=== PATIENT | female | born 1955 | race African-American/Black ===

== ENCOUNTER 2017-04-27 19:25 | Emergency (ER) | payer OTHER ==
[~2017-04-27] VITALS: Ht 162.6 cm; Wt 46.3 kg
[2017-04-27 20:07] LABS: Basophils # (auto) 0.1 uL; Basophils % (auto) 1.2 % (0.0-2.0); Eosinophils # (auto) 0.2 uL; Eosinophils % (auto) 3.1 % (0.0-7.0); Hematocrit 35.4 % (36.0-46.0); Hemoglobin 11.2 g/dL (12.2-16.2); Lymphocytes # (auto) 1.5 uL; Lymphocytes % (auto) 20.6 % (10.0-50.0); Mean Corpuscular Hemoglobin 28.7 pg (28.0-32.0); Mean Corpuscular Hgb Conc. 31.6 g/dL (32.0-36.0); Mean Corpuscular Volume 90.6 fL (80.0-100.0); Monocytes # (auto) 0.5 uL; Monocytes % (auto) 7.6 % (0.0-12.0); Neutrophils # (auto) 4.8 uL; Neutrophils % (auto) 67.5 % (37.0-80.0); Nucleated Red Blood Cells % 0.1 %; Platelet Count (auto) 264 10^3/uL (140-450); Red Blood Cells 3.91 10^6/uL (4.0-5.20)
[2017-04-27 20:09] LABS: Red Cell Distribution Width 21.1 % (11.8-14.3)
[2017-04-27 20:25] LABS: Albumin 3.1 g/dL (3.4-5.0); Calcium 8.4 mg/dL (8.5-10.1); Potassium 4.7 mmol/L (3.5-5.1)
[2017-04-27 20:35] LABS: BUN/Creatinine Ratio 4.7; Bilirubin, Total 0.4 mg/dL (0.2-1.0); Total Protein 6.9 g/dL (6.4-8.2)
[2017-04-27 20:42] VITALS: BP 117/58
[2017-04-27] MEDS ORDERED: ONDANSETRON HCL 4 MG/2 ML VIAL IV ONE (21:45)
[2017-04-27] MEDS ORDERED: HYDROmorphone HCL 2 MG/ML VL IV ONE ×2 (21:45→23:45)
== END 2017-04-28 00:19 | disposition home or self-care (01) ==
LOC: EDUNIT# 19:25 → ER 19:27
DX: T82.838A Hemorrhage due to vascular prosthetic devices, implants and grafts, initial encounter (principal); Z99.2 Dependence on renal dialysis; I12.0 Hypertensive chronic kidney disease with stage 5 chronic kidney disease or end stage renal disease; N18.6 End stage renal disease
CPT/HCPCS: 36415; 80053; 85025; 96374; 96375; 96376; 99284; J1170; J2405

== ENCOUNTER 2017-10-27 09:12 | Emergency (ER) | payer OTHER ==
[~2017-10-27] VITALS: Ht 162.6 cm; Wt 49.9 kg
[2017-10-27] MEDS ORDERED: DEXTROSE 50% SYRINGE 50 ML IV ONE (09:21)
[2017-10-27] MEDS ORDERED: DEXTROSE (50%) 50ML SYRG IV ONE (09:30)
[2017-10-27 10:18] LABS: Lactic Acid w/Reflex 11.5 mmol/L (0.4-2.0)
[2017-10-27 10:20] LABS: Albumin 3.1 g/dL (3.4-5.0); BUN/Creatinine Ratio 16.5; Bilirubin, Total 1.5 mg/dL (0.2-1.0); Calcium 7.2 mg/dL (8.5-10.1); Potassium 5.2 mmol/L (3.5-5.1); Total Protein 7.2 g/dL (6.4-8.2)
[2017-10-27 10:21] LABS: INR 1.56 (0.9-1.15); Partial Thromboplastin Time 26.5 sec (22.64-33.71); Prothrombin Time 17.1 sec (9.37-12.3)
[2017-10-27 11:05] LABS: Basophils # (auto) 0 uL; Eosinophils # (auto) 0 uL; Eosinophils % (auto) 0.1 % (0.0-7.0); Hematocrit 42.4 % (36.0-46.0); Lymphocytes # (auto) 0.2 uL; Monocytes # (auto) 0.2 uL; Neutrophils # (auto) 7.2 uL; Nucleated Red Blood Cells % 0.1 %
[2017-10-27 11:07] LABS: Basophils % (auto) 0.3 % (0.0-2.0); Lymphocytes % (auto) 3.1 % (10.0-50.0); Mean Corpuscular Hemoglobin 29.7 pg (28.0-32.0); Mean Corpuscular Hgb Conc. 30.6 g/dL (32.0-36.0); Mean Corpuscular Volume 97.1 fL (80.0-100.0); Monocytes % (auto) 2.9 % (0.0-12.0); Neutrophils % (auto) 93.6 % (37.0-80.0); Platelet Count (auto) 146 10^3/uL (140-450); Red Blood Cells 4.36 10^6/uL (4.0-5.20); Red Cell Distribution Width 19.4 % (11.8-14.3); White Blood Cell 7.7 10^3/uL (4.4-10.8)
[2017-10-27 11:31] LABS: Urine WBC None Seen /hpf (0 - 5)
[2017-10-27 11:55] LABS: Urine Amorphous Crystal FEW /hpf (None Seen); Urine Bacteria NONE SEEN /hpf (None Seen); Urine Blood 2+ /uL (Negative); Urine Specific Gravity 1.018 (1.001-1.035)
[2017-10-27] MEDS ORDERED: PIPERACILLIN-TAZOB 3.375GM 100 ML IV ONE (13:00)
[2017-10-27] MEDS ORDERED: metroNIDAZOLE 500MG/100ML 100 ML IV ONE (13:00)
[2017-10-27 13:52] VITALS: BP 174/82
== END 2017-10-27 14:49 | disposition short-term general hospital (02) ==
LOC: EDBD 09:12 → ER 09:12
DX: A41.9 Sepsis, unspecified organism (principal); E10.10 Type 1 diabetes mellitus with ketoacidosis without coma; E87.5 Hyperkalemia; R79.89 Other specified abnormal findings of blood chemistry; I13.2 Hypertensive heart and chronic kidney disease with heart failure and with stage 5 chronic kidney disease, or end stage renal disease; N18.6 End stage renal disease; I50.9 Heart failure, unspecified; Z99.2 Dependence on renal dialysis; Z94.0 Kidney transplant status
CPT/HCPCS: 36415; 71045; 74176; 80053; 80320; 81001; 82962; 83605; 83880; 84484; 85025; 85610; 85730; 87040; 93005; 96365; 96368; 96375; 99291; J2543; J3490; J7042

== ENCOUNTER 2018-04-25 16:15 | Inpatient (IN) | payer OTHER ==
[~2018-04-25] VITALS: Ht 165.1 cm; Wt 52.8 kg
[2018-04-25 17:43] LABS: Basophils # (auto) 0 uL; Hemoglobin 11.9 g/dL (12.2-16.2); Lymphocytes % (auto) 4.4 % (10.0-50.0); Neutrophils # (auto) 9.5 uL; White Blood Cell 10.2 10^3/uL (4.4-10.8)
[2018-04-25 17:46] LABS: Eosinophils # (auto) 0.1 uL; Eosinophils % (auto) 0.9 % (0.0-7.0); Hematocrit 39.5 % (36.0-46.0); Lymphocytes # (auto) 0.4 uL; Mean Corpuscular Hemoglobin 26.3 pg (28.0-32.0); Mean Corpuscular Hgb Conc. 30.2 g/dL (32.0-36.0); Mean Corpuscular Volume 87.1 fL (80.0-100.0); Monocytes # (auto) 0.1 uL; Monocytes % (auto) 1.3 % (0.0-12.0); Neutrophils % (auto) 93.4 % (37.0-80.0); Platelet Count (auto) 243 10^3/uL (140-450); Red Blood Cells 4.54 10^6/uL (4.0-5.20)
[2018-04-25 17:55] LABS: Red Cell Distribution Width 21.1 % (11.8-14.3)
[2018-04-25 18:01] LABS: Albumin 2.7 g/dL (3.4-5.0); Calcium 7.6 mg/dL (8.5-10.1)
[2018-04-25 18:06] LABS: BUN/Creatinine Ratio 19.7; Bilirubin, Total 0.4 mg/dL (0.2-1.0); Total Protein 6.4 g/dL (6.4-8.2)
[2018-04-25 18:12] LABS: Potassium 5.6 mmol/L (3.5-5.1)
[2018-04-25] MEDS ORDERED: ONDANSETRON HCL 4 MG/2 ML VIAL ONE (19:58)
[2018-04-25] MEDS ORDERED: MORPHINE SULF INJ 2 MG/ML SYRINGE 1ML ONE (19:58)
[2018-04-25] MEDS ORDERED: MORPHINE SULFATE 4 MG/ML SYR/VIAL IV ONE (20:00)
[2018-04-25] MEDS ORDERED: ONDANSETRON HCL 4 MG/2 ML VIAL IV ONE (20:00)
[2018-04-25 20:10] LABS: INR 0.98 (0.9-1.15); Partial Thromboplastin Time 22.2 sec (23.78-33.04); Prothrombin Time 10.5 sec (9.27-12.13)
[2018-04-25 20:12] LABS: Albumin 2.2 g/dL (3.4-5.0); BUN/Creatinine Ratio 19.6; Calcium 7.2 mg/dL (8.5-10.1); Potassium 5.4 mmol/L (3.5-5.1)
[2018-04-25 20:14] LABS: Bilirubin, Total 0.3 mg/dL (0.2-1.0); Total Protein 5.4 g/dL (6.4-8.2)
[2018-04-25] MEDS ORDERED: HYDROcodone-ACET 10/325MG TAB PO ONE (21:45)
[2018-04-25] MEDS ORDERED: SODIUM POLYSTYRENE SULF 15 GM POWDER PO ONE (22:15)
[2018-04-25] MEDS ORDERED: cloNIDine HCL 0.1 MG TAB PO ONE (22:15)
[2018-04-25 23:08] LABS: Urine Bacteria FEW /hpf (None Seen); Urine Blood Negative /uL (Negative); Urine Mucus FEW (None Seen); Urine Specific Gravity 1.018 (1.001-1.035); Urine WBC 22 /hpf (0 - 5)
[2018-04-26] MEDS ORDERED: FUROSEMIDE 40 MG/4 ML VIAL IV ONE (01:00)
[2018-04-26] MEDS ORDERED: HYDROcodone-ACET 5/325MG TAB PO PRN (02:30)
[2018-04-26] MEDS ORDERED: ACETAMINOPHEN 500 MG TAB PO PRN (02:30)
[2018-04-26] MEDS ORDERED: HYDROcodone-ACET 10/325MG TAB PO PRN (03:00)
[2018-04-26] MEDS: hydrALAZINE HCL 20 MG/ML VL IV PRN ×2 (03:02→16:41)
[2018-04-26 03:30] VITALS: BP 137/55
[2018-04-26] MEDS ORDERED: METH5T PO (03:58)
[2018-04-26] MEDS ORDERED: CEPH500C PO (03:58)
[2018-04-26] MEDS ORDERED: PRE5T PO (03:58)
[2018-04-26] MEDS ORDERED: CINA30TA2 PO (03:58)
[2018-04-26] MEDS ORDERED: TACR0.5C3 PO (03:58)
[2018-04-26] MEDS ORDERED: FURO40TA PO (03:58)
[2018-04-26] MEDS ORDERED: HYDR-4683 PO (03:58)
[2018-04-26] MEDS ORDERED: MYCO1TAB2 PO (03:58)
[2018-04-26] MEDS: cefTRIAXone 1GM/50ML D5W 50 ML IV SCH (05:30)
[2018-04-26] MEDS ORDERED: MORPHINE SULFATE 4 MG/ML SYR/VIAL IV ONE (06:30)
[2018-04-26 08:41] VITALS: BP 142/62
[2018-04-26] MEDS ORDERED: FUROSEMIDE 40 MG/4 ML VIAL IV SCH (10:00)
[2018-04-26] MEDS: predniSONE 5 MG TAB PO SCH (10:45)
[2018-04-26 11:59] VITALS: BP 145/65
[2018-04-26] MEDS: SODIUM CHLORIDE 0.9% 1,000 ML IV SCH ×2 (12:40→20:15)
[2018-04-26] MEDS: MORPHINE SULFATE 4 MG/ML SYR/VIAL IV PRN ×2 (16:10→22:23)
[2018-04-26 16:37] LABS: Urine Bacteria NONE SEEN /hpf (None Seen); Urine Blood Negative /uL (Negative); Urine Hyaline Cast FEW /lpf (0 - 2); Urine Specific Gravity 1.012 (1.001-1.035); Urine WBC 15 /hpf (0 - 5)
[2018-04-26] MEDS: LORazepam 0.5 MG TAB PO PRN ×2 (16:41→22:22)
[2018-04-26 16:46] LABS: Protein, Urine 301.4 mg/dL (0.0-11.9)
[2018-04-26 16:52] VITALS: BP 159/73
[2018-04-26 22:00] VITALS: BP 143/55
[2018-04-26] MEDS: ONDANSETRON HCL 4 MG/2 ML VIAL IV PRN (22:23)
[2018-04-27] MEDS: SODIUM CHLORIDE 0.9% 1,000 ML IV SCH ×2 (04:35→12:28)
[2018-04-27 05:00] VITALS: BP 141/66
[2018-04-27] MEDS: cefTRIAXone 1GM/50ML D5W 50 ML IV SCH (05:24)
[2018-04-27 07:36] LABS: Basophils # (auto) 0.1 uL; Eosinophils # (auto) 0.2 uL; Mean Corpuscular Hemoglobin 26.7 pg (28.0-32.0); Neutrophils # (auto) 6.7 uL
[2018-04-27 07:39] LABS: Basophils % (auto) 1.6 % (0.0-2.0); Eosinophils % (auto) 1.9 % (0.0-7.0); Hematocrit 30.8 % (36.0-46.0); Hemoglobin 9.7 g/dL (12.2-16.2); Lymphocytes # (auto) 0.7 uL; Lymphocytes % (auto) 8.5 % (10.0-50.0); Mean Corpuscular Hgb Conc. 31.6 g/dL (32.0-36.0); Mean Corpuscular Volume 84.5 fL (80.0-100.0); Monocytes # (auto) 0.3 uL; Monocytes % (auto) 4.3 % (0.0-12.0); Neutrophils % (auto) 83.7 % (37.0-80.0); Platelet Count (auto) 301 10^3/uL (140-450); Red Blood Cells 3.65 10^6/uL (4.0-5.20); White Blood Cell 8.1 10^3/uL (4.4-10.8)
[2018-04-27 07:43] LABS: Red Cell Distribution Width 21.1 % (11.8-14.3)
[2018-04-27 07:52] LABS: BUN/Creatinine Ratio 20.3; Magnesium 1.9 mg/dL (1.6-2.6); Potassium 4.5 mmol/L (3.5-5.1); Uric Acid 7.6 mg/dL (2.6-6.0)
[2018-04-27 07:57] LABS: Bilirubin, Direct 0.1 mg/dL (0-0.2); Bilirubin, Total 0.3 mg/dL (0.2-1.0); Phosphorus 6.8 mg/dL (2.5-4.90)
[2018-04-27 08:00] VITALS: BP 128/60
[2018-04-27] MEDS: predniSONE 5 MG TAB PO SCH (10:00)
[2018-04-27] MEDS: MORPHINE SULFATE 4 MG/ML SYR/VIAL IV PRN ×2 (11:43→20:24)
[2018-04-27 12:00] VITALS: BP 168/69
[2018-04-27] MEDS: Pro-Stat SF 30ml Vanilla PO SCH (18:00)
[2018-04-27] MEDS: Nepro With Carbsteady ButterPecan 8oz Carton PO SCH (18:00)
[2018-04-27] MEDS ORDERED: methylPREDNISolone SOD SUCC 500 MG in SODIUM CHL 0.9% 100 ML IV ONE (18:00)
[2018-04-27] MEDS: SOD CHL 0.45% 1,000 ML IV SCH (18:15)
[2018-04-27] MEDS: LORazepam 0.5 MG TAB PO PRN (20:24)
[2018-04-27] MEDS: ONDANSETRON HCL 4 MG/2 ML VIAL IV PRN (20:24)
[2018-04-27] MEDS: hydrALAZINE HCL 20 MG/ML VL IV PRN (21:39)
[2018-04-27] MEDS: ASCORBIC ACID 500 MG TAB PO SCH ×2 (21:39→22:00)
[2018-04-27 22:00] VITALS: BP 159/92
[2018-04-28] MEDS: MORPHINE SULFATE 4 MG/ML SYR/VIAL IV PRN ×3 (02:21→21:00)
[2018-04-28] MEDS: LORazepam 0.5 MG TAB PO PRN (02:22)
[2018-04-28 05:00] VITALS: BP 160/69
[2018-04-28] MEDS: SOD CHL 0.45% 1,000 ML IV SCH ×2 (05:16→14:00)
[2018-04-28] MEDS: hydrALAZINE HCL 20 MG/ML VL IV PRN (05:17)
[2018-04-28] MEDS: cefTRIAXone 1GM/50ML D5W 50 ML IV SCH (05:17)
[2018-04-28] MEDS: Pro-Stat SF 30ml Vanilla PO SCH ×2 (08:00→18:00)
[2018-04-28 08:48] VITALS: BP 128/47
[2018-04-28] MEDS: ASCORBIC ACID 500 MG TAB PO SCH ×2 (09:39→20:54)
[2018-04-28] MEDS: predniSONE 5 MG TAB PO SCH (09:39)
[2018-04-28] MEDS: Nepro With Carbsteady ButterPecan 8oz Carton PO SCH ×3 (09:46→18:00)
[2018-04-28] MEDS ORDERED: B-COMPLEX W/ C & FOLIC ACID(NEPHROVITE TAB) PO SCH (10:00)
[2018-04-28 13:00] VITALS: BP 153/67
[2018-04-28] MEDS ORDERED: ERTAPENEM SOD INJ 0.5 GM in SODIUM CHL 0.9% 50 ML IV SCH ×2 (14:00→14:30)
[2018-04-28] MEDS ORDERED: methylPREDNISolone SOD SUCC 500 MG in SODIUM CHL 0.9% 100 ML IV ONE (16:45)
[2018-04-28 17:00] VITALS: BP 142/70
== END 2018-04-28 21:20 | disposition short-term general hospital (02) | DRG 698 ==
LOC: ER 16:20 → TELE 16:21 → TELE-EAST 04-26 03:15
PROVIDERS: ADMIT Nurse Practitioner Family; ATTEND Family Medicine
DX: T86.19 Other complication of kidney transplant (principal); N17.0 Acute kidney failure with tubular necrosis; I50.43 Acute on chronic combined systolic (congestive) and diastolic (congestive) heart failure; N18.6 End stage renal disease; N39.0 Urinary tract infection, site not specified; I13.2 Hypertensive heart and chronic kidney disease with heart failure and with stage 5 chronic kidney disease, or end stage renal disease; E44.0 Moderate protein-calorie malnutrition; Z68.1 Body mass index [BMI] 19.9 or less, adult; Z94.0 Kidney transplant status; M79.605 Pain in left leg; M79.89 Other specified soft tissue disorders; I16.0 Hypertensive urgency; D63.8 Anemia in other chronic diseases classified elsewhere; E87.5 Hyperkalemia; Z99.2 Dependence on renal dialysis; Y83.8 Other surgical procedures as the cause of abnormal reaction of the patient, or of later complication, without mention of misadventure at the time of the procedure
CPT/HCPCS: 36415; 71046; 76775; 80048; 80053; 80076; 80197; 81001; 82306; 82533; 82570; 83735; 83880; 84100; 84156; 84300; 84443; 84550; 85025; 85610; 85730; 86644; 86645; 86664; 87086; 87088; 87186; 93005; 93306; 93971; 96361; 96365; 96375; G0378; J0696; J1335; J2405

== ENCOUNTER 2019-02-03 05:30 | Emergency (ER) | payer OTHER ==
[~2019-02-03] VITALS: Ht 167.6 cm; Wt 40.8 kg
[~2019-02-03 05:30] MED LIST: CEPH500C PO; CINA30TA2 PO; FURO1TAB31 PO; HYDR-4833 PO; METH5T PO; MYCO1TAB2 PO; PRE5T PO; TACR0.5C3 PO
[2019-02-03] MEDS ORDERED: EPINEPHrine HCL 1 MG/10 ML SYRG IV ONE (05:31)
[2019-02-03] MEDS ORDERED: CALCIUM CHLOR(10%) 100MG/ML 10ML SYRINGE IV ONE (05:31)
[2019-02-03] MEDS ORDERED: SODIUM BICARBONATE 8.4% INJ 50ML SYRINGE IV ONE (05:31)
== END 2019-02-03 11:50 | disposition expired ==
LOC: EDBD 05:30 → ER 05:30
DX: I46.9 Cardiac arrest, cause unspecified (principal); I12.0 Hypertensive chronic kidney disease with stage 5 chronic kidney disease or end stage renal disease; N18.6 End stage renal disease; Z99.2 Dependence on renal dialysis; Z79.899 Other long term (current) drug therapy; Z79.2 Long term (current) use of antibiotics; Z88.6 Allergy status to analgesic agent
CPT/HCPCS: 31500; 92950; 99285; J0171